=== PATIENT | male | born 1990 | race Caucasian/White ===

== ENCOUNTER → 2023-07-17 08:57 | Outpatient (BNVA) | payer OTHER, BC, SELFPAY | PROVIDERS: Family Provider Orthopaedic Surgery; Visit Provider Physician Assistant | DX: M51.37 Other intervertebral disc degeneration, lumbosacral region (principal) | CPT/HCPCS: 72100; 72110 ==

== ENCOUNTER 2023-08-12 07:23 | Outpatient (CLI) | payer BC, SELFPAY ==
--- NOTE | 2023-08-12 08:00 | MR_ITS ---
WS: [id number] MRI LUMBAR SPINE NONCONTRAST HISTORY: lumbar pain COMPARISON: None available. TECHNIQUE: Sagittal and axial multisequence imaging is submitted. Mild disc bulging and small osteophytes seen on the survey image at C3-4. Mild straightening of the normal lumbar lordosis. Mild disc space narrowing and desiccation at L5-S1. No fractures or marrow edema. Conus terminates normally at L1-2 disc level. L1-L2: Normal. L2-L3: Mild ligamentum flavum hypertrophy and a small amount of fluid in the facet joints. No stenosi s. L3-L4: Slight annular disc bulging with mild facet and ligamentum flavum hypertrophy. No stenosis. L4-L5: Mild annular disc bulging encroaching upon the subarticular recesses and the traversing L5 ner ve roots. Mild facet and ligamentum flavum hypertrophy. Mild subarticular recess and foraminal narrow ing. L5-S1: Large central disc protrusion contacts the thecal sac with displacement and deformity. There i s a central annular fissure. The disc contacts the S1 nerve roots bilaterally, LEFT greater than RIGH T and the subarticular recesses. Additional shallow disc protrusion RIGHT foramen contacting the exit ing RIGHT L5 nerve root. Mild central, bilateral subarticular recess and foraminal stenosis. IMPRESSION: 1. Large central disc protrusion at L5-S1 with contact on the traversing S1 nerve roots, LEFT greater than RIGHT. 2. Additional RIGHT foraminal disc protrusion at L5-S1 contacting the exiting RIGHT L5 nerve root. 3. There is mild central, bilateral subarticular recess and foraminal stenosis at L5-S1. 4. 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 5. Mild subarticular recess and foraminal narrowing at L4-5.
== END 2023-08-12 07:24 | disposition home or self-care (01) ==
LOC: RAD 07:24
PROVIDERS: Family Provider Orthopaedic Surgery; Visit Provider Physician Assistant
DX: M47.27 Other spondylosis with radiculopathy, lumbosacral region (principal); M51.27 Other intervertebral disc displacement, lumbosacral region; M48.07 Spinal stenosis, lumbosacral region
CPT/HCPCS: 72148